=== PATIENT | female | born 1960 | race Two or more races ===

== ENCOUNTER 2018-04-18 09:12 | Outpatient (CLI) | payer OTHER ==
[~2018-04-18 09:12] MED LIST: FLECTOR30 EA TP; LODINE XL500 MG PO; MEDROLPACK PO
== END 2018-04-18 09:21 | disposition home or self-care (01) ==
LOC: TOM 09:12
DX: K57.32 Diverticulitis of large intestine without perforation or abscess without bleeding (principal)